=== PATIENT | female | born 1995 | race American Indian/Alaskan Native ===

== ENCOUNTER 2019-09-27 04:47 | Inpatient (IN) | payer MEDICAID, OTHER ==
[2019-09-27] MEDS ORDERED: Carboprost Tromethamine 250 MCG/1 ML Amp IM PRN ×2 (05:39→09:10)
[2019-09-27] MEDS ORDERED: Methylergonovine 0.2 MG/1 ML Amp IM PRN (05:39)
[2019-09-27] MEDS ORDERED: fentaNYL 100 MCG/2 ML SDV IVPUSH PRN (05:39)
[2019-09-27] MEDS ORDERED: Naloxone 2 MG/2 ML Syringe IVPUSH PRN (05:39)
[2019-09-27] MEDS ORDERED: Tranexamic Acid 1,000 MG in Sodium Chloride 0.9% 100 ML IV PRN ×2 (05:39→09:10)
[2019-09-27] MEDS ORDERED: ePHEDrine 50 MG/ML SDV IVPUSH PRN (05:39)
[2019-09-27] MEDS ORDERED: Misoprostol 400 MCG (4 X 100 MCG TAB) RECTAL PRN ×2 (05:39→09:10)
[2019-09-27] MEDS ORDERED: Promethazine 25 MG/ML SDV IM PRN (05:39)
[2019-09-27] MEDS ORDERED: Lactated Ringers 1,000 ML IV ONE (05:39)
[2019-09-27] MEDS ORDERED: Lidocaine 1% 30 ML SDV INJECT PRN (05:39)
[2019-09-27] MEDS ORDERED: Butorphanol 2 MG/ML SDV IVPUSH PRN (05:39)
[2019-09-27] MEDS ORDERED: Ondansetron 4 MG/2 ML SDV IVPUSH PRN (05:39)
[2019-09-27] MEDS ORDERED: Penicillin G Potassium 5 MILLUNITS in Sodium Chloride 0.9% 100 ML IV ONE (05:39)
[2019-09-27] MEDS ORDERED: Lactated Ringers 500 ML IV SCH (05:45)
[2019-09-27] MEDS ORDERED: hydrOXYzine HCl 25 MG Tab PO PRN (05:46)
[2019-09-27] MEDS: Lactated Ringers 1,000 ML IV SCH ×4 (06:34→20:19)
[2019-09-27] MEDS: Oxytocin/Normal Saline 30 UNIT/500 ML BAG IV SCH ×2 (08:34→23:12)
[2019-09-27] MEDS ORDERED: Sodium Chloride 0.9% 10 ML Syringe FLUSH PRN (09:10)
[2019-09-27] MEDS ORDERED: Benzocaine/Menthol 20%-0.5% Spray 56 GM Canister TOP PRN (09:10)
[2019-09-27] MEDS ORDERED: Acetaminophen 325 MG Tab PO PRN (09:10)
[2019-09-27] MEDS ORDERED: Simethicone 80 MG Tab.Chew PO PRN (09:10)
[2019-09-27] MEDS ORDERED: Oxytocin 10 Units/1 ML SDV IM PRN (09:10)
[2019-09-27] MEDS ORDERED: Zolpidem 5 MG Tab PO PRN (09:10)
[2019-09-27] MEDS ORDERED: Measles, Mumps & Rubella Vaccine 0.5 ML SDV SUBCUT ONE (09:10)
--- NOTE | 2019-09-27 09:59 | HP ---
CHIEF COMPLAINT: "I think I'm in labor. My water broke." HISTORY OF PRESENT ILLNESS: Ms. Anand is a 23-year-old 1, para 0 female who reports to [facility] in [place] [facility] because of leakage of fluid and contractions. Last menstrual period 12/18/2018. EDC 09/24/2019. EGA 40-3/7 weeks' gestation, which is consistent with her last menstrual period and 2nd trimester ultrasound. She denies any nausea, vomiting, or diarrhea. No fever or chills. No hematochezia, hematemesis, hematuria. No dysuria, frequency, or urgency with urination. No leg pain, leg edema, or severe back or abdominal pain. She has no vaginal bleeding. She states at approximately 3:30 this morning, her water broke after having some contractions. She has not had any issues in the . She has done quite well. She has no history of asthma, diabetes, seizure disorder, gastrointestinal disease, hypertension, heart disease, cancer, thyroid disease, thromboembolic disease, psychiatric illnesses, blood transfusions, or breast lesions. FAMILY HISTORY: Positive for breast cancer in her mother who is and her father has history of throat cancer, but no hypertension, heart disease, seizure disorder, thyroid disorder, kidney disease, or lung problems. SOCIAL HISTORY: She denies any alcohol use or tobacco use. She has used marijuana. Had a positive urine cannabis screen in February, and she states she did use the last time 2 weeks ago. Her significant other is Mikey Rosalinda, who is involved. MEDICATION: vitamins. ALLERGIES: No known drug allergies. PAST SURGICAL HISTORY: None. OBSTETRICAL HISTORY: Primigravida. GYNECOLOGICAL HISTORY: No history of STIs or abnormal Pap smears. REVIEW OF SYSTEMS: All pertinent positive and negative review of systems per HPI. All other systems reviewed were negative. A 10-point review of systems discussed with the patient. She has no other issues. OBJECTIVE: General: Well-developed, well-nourished female in no acute distress. Vital Signs: Stable. Afebrile. Blood pressure 111/52, pulse is 74, respirations 18. HEENT: Unremarkable. Neck: Supple without adenopathy. No thyromegaly. Lungs: Clear to auscultation. No wheezing, rhonchi, or rales noted. Cardiovascular: Regular rate and rhythm without murmurs. Back: No CVA tenderness. Abdomen: Gravid, nontender. Fundal height 39 cm. Protuberant. : Cervix is 2 cm dilated, 80% effaced, -2 vertex with copious amount of watery fluid discharge noted. Extremities: No edema, erythema, or tenderness noted. LABORATORY DATA: Blood type is O positive. Antibody screen negative. Rapid COVID-19 test negative. Rubella nonimmune. RPR nonreactive. Hepatitis C negative. Hepatitis B surface antigen negative. Group B strep vaginal culture positive. ASSESSMENT: 1. 40-3/7-week intrauterine . 2. Early labor. 3. Spontaneous rupture of membranes. 4. Positive group B streptococcus vaginal culture. 5. Positive marijuana use in . 6. Anemia during . 7. Rubella nonimmune. PLAN: 1. Admit to Labor and Delivery. 2. Expect vaginal delivery. 3. We will watch closely throughout her labor process. 4. We will start Pitocin augmentation if needed. 5. All questions answered. 6. The patient offered IV pain medications and intrathecal as needed. [facility] /[id number]
[2019-09-27] MEDS: Penicillin G Potassium 3 MILLUNITS in Sodium Chloride 0.9% 100 ML IV SCH ×4 (11:18→23:13)
[2019-09-27] MEDS ORDERED: Sodium Bicarbonate 4.2% 2.5 MEQ/5 ML SDV ONE ×2 (13:39→17:48)
[2019-09-27] MEDS ORDERED: fentaNYL 100 MCG/2 ML SDV ITHECAL ONE (13:39)
[2019-09-27] MEDS ORDERED: Sodium Chloride 0.9% 10 ML Syringe ONE (13:39)
[2019-09-27] MEDS ORDERED: EPINEPHrine 1 MG/1 ML Amp ONE ×2 (13:39→17:47)
[2019-09-27] MEDS ORDERED: fentaNYL 100 MCG/2 ML SDV ONE (17:47)
--- NOTE | 2019-09-27 18:27 | PCM.SN.2 ---
- Free Text/Narrative Note: Intrathecal. Sitting position, sterile prep and drape. 1% lidocaine w bicarb to L3 L4 interspace x2 and L2 L3 x 1. introducer and 24 ga pencan x 2 to L3 L4 interspace x 2. Introducer and 24 ga Pencan to L2 L3 interspace x 1. Pos CSF, neg heme neg parasthesia. 0.1 ml pf 1:1000 epi, 20 mcg pf sufenta, 30 mcg pf fentanyl 0.4 ml pf ns and 6 mg of 0.75% pf bupivacaine injected after CSF aspiration. Pt to L lateral position. Procedure time 1750 to 1830.
--- NOTE | 2019-09-27 19:32 | PCM.PNLD ---
Labor Progress Note - VS & Meds Vital Signs: Last Vital Signs Temp 98.1 F 09/27/19 16:13 Pulse 71 09/27/19 18:47 Resp 16 09/27/19 16:13 BP 143/55 H 09/27/19 18:47 Pulse Ox Active Medications: Current Medications Acetaminophen (Tylenol) 650 mg PO Q4H PRN PRN Reason: Pain (Mild 1-3) and fever Acetaminophen (Tylenol) 650 mg PO Q6H PRN PRN Reason: mild pain or fever Benzocaine/Menthol (Dermoplast Pain Relief [place]) 0 gm TOP Q4H PRN PRN Reason: Perineal comfort measures Butorphanol Tartrate (Stadol) 1 mg IVPUSH Q3H PRN PRN Reason: Pain Last Admin: 09/27/19 10:40 Dose: 1 mg Carboprost Tromethamine (Hemabate Ds) 250 mcg IM ASDIRECTED PRN PRN Reason: HEMORRHAGE Carboprost Tromethamine (Hemabate Ds) 250 mcg IM ASDIRECTED PRN PRN Reason: Excessive vaginal bleeding Docusate Sodium (Colace) 100 mg PO BID PRN PRN Reason: Constipation Ephedrine Sulfate (Ephedrine Sulfate) 5 mg IVPUSH Q5M PRN PRN Reason: See Label Comments Fentanyl (Sublimaze) 50 mcg IVPUSH Q1H PRN PRN Reason: Pain Last Admin: 09/27/19 13:20 Dose: 50 mcg Ferrous Sulfate (Ferrous Sulfate) 325 mg PO WITHBREAKFAST DEVIN Hydroxyzine HCl (Atarax) 50 mg PO ONETIME PRN PRN Reason: Pain Lactated Ringer's (Ringers, Lactated) 1,000 mls @ 125 mls/hr IV ASDIRECTED DEVIN Last Admin: 09/27/19 18:35 Dose: 125 mls/hr Lactated Ringer's (Ringers, Lactated) 500 mls @ 999 mls/hr IV .BOLUS DEVIN Oxytocin/Sodium Chloride (Pitocin In Ns 30 Unit/500 Ml) 30 unit in 500 mls @ 2 mls/hr IV TITRATE DEVIN; Protocol Last Titration: 09/27/19 16:15 Dose: 10 munits/min, 10 mls/hr Tranexamic Acid 1,000 mg/ (Sodium Chloride) 110 mls @ 660 mls/hr IV ONETIME PRN PRN Reason: Bleeding Tranexamic Acid 1,000 mg/ (Sodium Chloride) 110 mls @ 660 mls/hr IV ONETIME PRN PRN Reason: Bleeding Penicillin G Potassium 3 (millunits/ Sodium Chloride) 100 mls @ 200 mls/hr IV Q4H [facility] Last Admin: 09/27/19 19:14 Dose: 200 mls/hr Ibuprofen (Motrin) 800 mg PO Q8H PRN PRN Reason: Mild Pain or Fever Lidocaine HCl (Xylocaine-Mpf 1%) 30 ml INJECT ASDIRECTED PRN PRN Reason: Perineal Repair Methylergonovine Maleate (Methergine) 0.2 mg IM ASDIRECTED PRN PRN Reason: Hemorrhage Misoprostol (Cytotec) 800 mcg RECTAL ASDIRECTED PRN PRN Reason: Hemorrhage Misoprostol (Cytotec) 800 mcg RECTAL ONETIME PRN PRN Reason: Hemorrhage Naloxone HCl (Narcan) 0.1 mg IVPUSH SEECOMMENT PRN PRN Reason: Respiratory Depression Ondansetron HCl (Zofran) 4 mg IVPUSH Q4H PRN PRN Reason: Nausea/Vomiting Last Admin: 09/27/19 17:46 Dose: 4 mg Oxytocin (Pitocin) 10 unit IM ONETIME PRN PRN Reason: Bleeding Prenat Multivit/[place]/Iron/Folic Ac ( Plus Iron) 1 each PO DAILY [facility] Promethazine HCl (Phenergan) 12.5 mg IM Q6H PRN PRN Reason: Nausea/Vomiting Last Admin: 09/27/19 19:16 Dose: 12.5 mg Simethicone (Simethicone) 80 mg PO Q4H PRN PRN Reason: Gas Sodium Chloride (Saline Flush) 10 ml FLUSH ASDIRECTED PRN PRN Reason: Keep Vein Open Witch Erin (Medi-Pads) 1 each TOP Q4HR PRN PRN Reason: Perineal Comfort Measure Zolpidem Tartrate (Ambien) 5 mg PO BEDTIME PRN PRN Reason: Insomnia Discontinued Medications Epinephrine HCl (Adrenalin) Confirm Administered Dose 1 mg .ROUTE .STK-MED ONE Stop: 09/27/19 17:48 Fentanyl (Sublimaze) Confirm Administered Dose 100 mcg .ROUTE .STK-MED ONE Stop: 09/27/19 17:48 Lactated Ringer's (Ringers, Lactated) 1,000 mls @ 999 mls/hr IV BOLUS ONE Stop: 09/27/19 06:39 Last Admin: 09/27/19 17:48 Dose: 999 mls/hr Penicillin G Potassium 5 (millunits/ Sodium Chloride) 100 mls @ 200 mls/hr IV ONETIME ONE Stop: 09/27/19 06:08 Last Admin: 09/27/19 06:34 Dose: 200 mls/hr Measles/Mumps/Rubella Vaccine Live (M-M-R Ii Vaccine) 0.5 ml SUBCUT .ONCE ONE Stop: 09/27/19 09:11 Sodium Bicarbonate (Sodium Bicarbonate 4.2%) Confirm Administered Dose 2.5 meq .ROUTE .STK-MED ONE Stop: 09/27/19 17:49 Sufentanil Citrate (Sufenta) Confirm Administered Dose 50 mcg .ROUTE .STK-MED ONE Stop: 09/27/19 17:49 - Uterine Contractions Uterine Monitoring Mode: External Feather Sound Contraction Frequency (min): 1.5-4 Contraction Duration (sec): 60-70 Contraction Intensity: Moderate Uterine Resting Tone: Soft - Monitoring Heart Rate (FHR) Baseline: 140 Heart Rate (FHR) Variability: Moderate (6-25 bmp) Accelerations: Present, 15x15 Decelerations: Early Strip Review: Category I - Vaginal Exam Dilation (cm): 6-7 Effacement (Percent): 100 Station: -1 Cervical Position: Midposition Sterile Vaginal Exam Performed By: Matt Delarosa Vaginal Exam Comment: Pitocin at 10 mu/min Intrathecal in place patient very comfortable
--- NOTE | 2019-09-27 22:43 | PCM.OPNOTE ---
- General Post-Op/Procedure Note Date of Surgery/Procedure: 09/27/19 () Operative Procedure(s): Normal spontaneous vaginal delivery Anesthesia Technique: Local (Intrathecal and 1% Lidocaine on the perineum), Regional Block Primary Surgeon: Matt Delarosa Anesthesia Provider: Michael Walden (Intrathecal placenment) Pathology: None EBL in mLs: 300 Complications: None Condition: Good Free Text/Narrative:: Intake & Output 09/27/19 09/27/19 09/27/19 06:59 14:59 22:59 Intake Total 2200 Balance 2200 ,OA, Viable male over intact perineum Cord 3 vessel tightly around the neck X 1 Placenta delivered by simple expression intact Labia, vagina and cervix inspected and intact. 2nd degree midline perineal laceration repaired with 2-0 vicryl suture without difficulty. 7 lb male , 19 1/2 inches long, with 's of 8 and 9. 300 mL blood loss.
[2019-09-27] MEDS: Acetaminophen 325 MG Tab PO PRN (23:02)
[2019-09-28] MEDS ORDERED: Ferrous Sulfate 325 MG Tab PO SCH (08:00)
[2019-09-28] MEDS: Prenatal Multivitamin with Calcium/Folic Acid/Iron Tab PO SCH (08:20)
[2019-09-28] MEDS: Acetaminophen 325 MG Tab PO PRN ×2 (08:20→21:19)
--- NOTE | 2019-09-28 11:41 | PCM.PNPP ---
- General Info Date of Service: 09/28/19 (PPD #1 S/P ) Functional Status: Reports: Pain Controlled, Tolerating Diet, Ambulating, Urinating - Review of Systems General: Reports: No Symptoms HEENT: Reports: No Symptoms Pulmonary: Reports: No Symptoms Cardiovascular: Reports: No Symptoms Gastrointestinal: Reports: No Symptoms Genitourinary: Reports: No Symptoms Musculoskeletal: Reports: No Symptoms Skin: Reports: No Symptoms Neurological: Reports: No Symptoms Psychiatric: Reports: No Symptoms - General Info Date of Service: 09/28/19 (PPD # 1 S/P ) - Patient Data Vital Signs - Most Recent: Last Vital Signs Temp 98.1 F 09/28/19 08:00 Pulse 98 09/28/19 08:00 Resp 16 09/28/19 08:00 BP 122/55 L 09/28/19 08:00 Pulse Ox 98 09/28/19 08:00 Weight - Most Recent: 263 lb I&O - Last 24 Hours: Intake & Output 09/27/19 09/28/19 09/28/19 22:59 06:59 14:59 Intake Total 3900 900 Balance 3900 900 Lab Results - Last 24 Hours: Laboratory Results - last 24 hr 09/28/19 Range/Units 05:45 WBC 14.5 H (5.0-10.0) 10^3/uL RBC 3.33 L (4.2-5.4) 10^6/uL Hgb 9.9 L D (12.0-16.0) g/dL Hct 29.4 L (37.0-47.0) % MCV 88.3 (80-100) fL MCH 29.7 (27.0-34.0) pg MCHC 33.7 (33.0-35.0) g/dL Plt Count 166 (150-450) 10^3/uL Med Orders - Current: Current Medications Acetaminophen (Tylenol) 650 mg PO Q4H PRN PRN Reason: Pain (Mild 1-3) and fever Last Admin: 09/28/19 08:20 Dose: 650 mg Acetaminophen (Tylenol) 650 mg PO Q6H PRN PRN Reason: mild pain or fever Benzocaine/Menthol (Dermoplast Pain Relief [place]) 0 gm TOP Q4H PRN PRN Reason: Perineal comfort measures Last Admin: 09/27/19 23:03 Dose: 1 applic Butorphanol Tartrate (Stadol) 1 mg IVPUSH Q3H PRN PRN Reason: Pain Last Admin: 09/27/19 10:40 Dose: 1 mg Carboprost Tromethamine (Hemabate Ds) 250 mcg IM ASDIRECTED PRN PRN Reason: HEMORRHAGE Carboprost Tromethamine (Hemabate Ds) 250 mcg IM ASDIRECTED PRN PRN Reason: Excessive vaginal bleeding Docusate Sodium (Colace) 100 mg PO BID PRN PRN Reason: Constipation Ephedrine Sulfate (Ephedrine Sulfate) 5 mg IVPUSH Q5M PRN PRN Reason: See Label Comments Fentanyl (Sublimaze) 50 mcg IVPUSH Q1H PRN PRN Reason: Pain Last Admin: 09/27/19 13:20 Dose: 50 mcg Ferrous Sulfate (Ferrous Sulfate) 325 mg PO BIDMEALS DEVIN Hydroxyzine HCl (Atarax) 50 mg PO ONETIME PRN PRN Reason: Pain Lactated Ringer's (Ringers, Lactated) 1,000 mls @ 125 mls/hr IV ASDIRECTED DEVIN Last Infusion: 09/28/19 02:30 Dose: 0 mls/hr Lactated Ringer's (Ringers, Lactated) 500 mls @ 999 mls/hr IV .BOLUS DEVIN Oxytocin/Sodium Chloride (Pitocin In Ns 30 Unit/500 Ml) 30 unit in 500 mls @ 2 mls/hr IV TITRATE DEVIN; Protocol Last Titration: 09/28/19 02:30 Dose: 0 munits/min, 0 mls/hr Tranexamic Acid 1,000 mg/ (Sodium Chloride) 110 mls @ 660 mls/hr IV ONETIME PRN PRN Reason: Bleeding Tranexamic Acid 1,000 mg/ (Sodium Chloride) 110 mls @ 660 mls/hr IV ONETIME PRN PRN Reason: Bleeding Ibuprofen (Motrin) 800 mg PO Q8H PRN PRN Reason: Mild Pain or Fever Lidocaine HCl (Xylocaine-Mpf 1%) 30 ml INJECT ASDIRECTED PRN PRN Reason: Perineal Repair Last Admin: 09/27/19 23:05 Dose: 30 ml Methylergonovine Maleate (Methergine) 0.2 mg IM ASDIRECTED PRN PRN Reason: Hemorrhage Misoprostol (Cytotec) 800 mcg RECTAL ASDIRECTED PRN PRN Reason: Hemorrhage Misoprostol (Cytotec) 800 mcg RECTAL ONETIME PRN PRN Reason: Hemorrhage Naloxone HCl (Narcan) 0.1 mg IVPUSH SEECOMMENT PRN PRN Reason: Respiratory Depression Ondansetron HCl (Zofran) 4 mg IVPUSH Q4H PRN PRN Reason: Nausea/Vomiting Last Admin: 09/27/19 17:46 Dose: 4 mg Oxytocin (Pitocin) 10 unit IM ONETIME PRN PRN Reason: Bleeding Prenat Multivit/[place]/Iron/Folic Ac ( Plus Iron) 1 each PO DAILY DEVIN Last Admin: 09/28/19 08:20 Dose: 1 each Promethazine HCl (Phenergan) 12.5 mg IM Q6H PRN PRN Reason: Nausea/Vomiting Last Admin: 09/27/19 19:16 Dose: 12.5 mg Simethicone (Simethicone) 80 mg PO Q4H PRN PRN Reason: Gas Sodium Chloride (Saline Flush) 10 ml FLUSH ASDIRECTED PRN PRN Reason: Keep Vein Open Witch Erin (Medi-Pads) 1 each TOP Q4HR PRN PRN Reason: Perineal Comfort Measure Last Admin: 09/27/19 23:04 Dose: 1 applic Zolpidem Tartrate (Ambien) 5 mg PO BEDTIME PRN PRN Reason: Insomnia Discontinued Medications Epinephrine HCl (Adrenalin) Confirm Administered Dose 1 mg .ROUTE .STK-MED ONE Stop: 09/27/19 17:48 Last Admin: 09/27/19 21:25 Dose: Not Given Fentanyl (Sublimaze) Confirm Administered Dose 100 mcg .ROUTE .STK-MED ONE Stop: 09/27/19 17:48 Last Admin: 09/27/19 21:24 Dose: Not Given Ferrous Sulfate (Ferrous Sulfate) 325 mg PO WITHBREAKFAST [facility] Last Admin: 09/28/19 08:20 Dose: 325 mg Lactated Ringer's (Ringers, Lactated) 1,000 mls @ 999 mls/hr IV BOLUS ONE Stop: 09/27/19 06:39 Last Admin: 09/27/19 17:48 Dose: 999 mls/hr Penicillin G Potassium 5 (millunits/ Sodium Chloride) 100 mls @ 200 mls/hr IV ONETIME ONE Stop: 09/27/19 06:08 Last Admin: 09/27/19 06:34 Dose: 200 mls/hr Penicillin G Potassium 3 (millunits/ Sodium Chloride) 100 mls @ 200 mls/hr IV Q4H DEVIN Last Admin: 09/27/19 23:13 Dose: Not Given Measles/Mumps/Rubella Vaccine Live (M-M-R Ii Vaccine) 0.5 ml SUBCUT .ONCE ONE Stop: 09/27/19 09:11 Last Admin: 09/28/19 08:55 Dose: 0.5 ml Sodium Bicarbonate (Sodium Bicarbonate 4.2%) Confirm Administered Dose 2.5 meq .ROUTE .STK-MED ONE Stop: 09/27/19 17:49 Last Admin: 09/27/19 21:24 Dose: Not Given Sufentanil Citrate (Sufenta) Confirm Administered Dose 50 mcg .ROUTE .STK-MED ONE Stop: 09/27/19 17:49 Last Admin: 09/27/19 21:24 Dose: Not Given - Interaction Infant Disposition, : [place] in Room with Family Interaction: Holding Infant Infant Feeding: Breastfed Infant; Nursed Well, Continues to Breastfeed Support Person: Significant Other, Other (see below) - Recovery Exam Fundal Tone: Firm Fundal Level: At Umbilicus Fundal Placement: Midline Lochia Amount: Small Lochia Color: Rubra/Red Perineum Description: Intact, Minimal Bruising/Swelling Episiotomy/Laceration: Approximated Bladder Status: Voiding Urinary Elimination: Voided - Exam General: Alert, Oriented, Cooperative, No Acute Distress HEENT: Pupils Equal, Pupils Reactive, Mucous Membr. Moist/[place] Neck: Supple Lungs: Clear to Auscultation, Normal Respiratory Effort Cardiovascular: Regular Rate, Regular Rhythm GI/Abdominal Exam: Normal Bowel Sounds, Soft, Non-Tender, No Distention Extremities: Normal Inspection, Normal Range of Motion, Non-Tender, No Pedal Edema, Normal Capillary Refill Skin: Warm, Dry, Intact Wound/Incisions: Healing Well Neurological: No New Focal Deficit, Normal Gait, Normal Speech, Normal Tone Psy/Mental Status: Alert, Normal Affect, Normal Mood - Problem List Review Problem List Initiated/Reviewed/Updated: Yes - My Orders Last 24 Hours: My Active Orders 09/27/19 Dinner Regular Diet [DIET] 09/27/19 Lunch Regular Diet [DIET] 09/28/19 09:00 Vit with Ca/FA/Iron [ Plus Iron] 1 each PO DAILY 09/28/19 18:00 Ferrous Sulfate 325 mg PO BIDMEALS - Assessment Assessment:: PPD # 1 S/P Doing well. 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 - Plan Plan:: Increase ambulation FeSO4 325 mg 1 tablet BID po vitamin daily Ibuprofen/Tylenol for discomfort as needed. Discharge planning for tomorrow.
[2019-09-28] MEDS: Ibuprofen 800 MG Tab PO PRN (21:20)
[2019-09-28] MEDS: Docusate Sodium 100 MG Cap PO PRN (21:21)
[2019-09-28] MEDS: Ferrous Sulfate 325 MG Tab PO SCH (21:21)
--- NOTE | 2019-09-29 03:48 | PCM.PNPP ---
- General Info Date of Service: 09/29/19 (PPD # 2 S/P ) Functional Status: Reports: Pain Controlled, Tolerating Diet, Ambulating, Urinating - Review of Systems General: Reports: No Symptoms HEENT: Reports: No Symptoms Pulmonary: Reports: No Symptoms Cardiovascular: Reports: No Symptoms Gastrointestinal: Reports: No Symptoms Genitourinary: Reports: No Symptoms Musculoskeletal: Reports: No Symptoms Skin: Reports: No Symptoms Neurological: Reports: No Symptoms Psychiatric: Reports: No Symptoms - General Info Date of Service: 09/29/19 (PPD # 2 S/P ) - Patient Data Vital Signs - Most Recent: Last Vital Signs Temp 99.4 F 09/28/19 20:00 Pulse 94 09/28/19 20:00 Resp 18 09/28/19 20:00 BP 118/62 09/28/19 20:00 Pulse Ox 99 09/28/19 20:00 Weight - Most Recent: 263 lb I&O - Last 24 Hours: Intake & Output 09/28/19 09/28/19 09/29/19 14:59 22:59 06:59 Intake Total 1400 Balance 1400 Lab Results - Last 24 Hours: Laboratory Results - last 24 hr 09/28/19 Range/Units 05:45 WBC 14.5 H (5.0-10.0) 10^3/uL RBC 3.33 L (4.2-5.4) 10^6/uL Hgb 9.9 L D (12.0-16.0) g/dL Hct 29.4 L (37.0-47.0) % MCV 88.3 (80-100) fL MCH 29.7 (27.0-34.0) pg MCHC 33.7 (33.0-35.0) g/dL Plt Count 166 (150-450) 10^3/uL Med Orders - Current: Current Medications Acetaminophen (Tylenol) 650 mg PO Q4H PRN PRN Reason: Pain (Mild 1-3) and fever Last Admin: 09/28/19 21:19 Dose: 650 mg Acetaminophen (Tylenol) 650 mg PO Q6H PRN PRN Reason: mild pain or fever Benzocaine/Menthol (Dermoplast Pain Relief [place]) 0 gm TOP Q4H PRN PRN Reason: Perineal comfort measures Last Admin: 05/02/20 23:03 Dose: 1 applic Butorphanol Tartrate (Stadol) 1 mg IVPUSH Q3H PRN PRN Reason: Pain Last Admin: 09/27/19 10:40 Dose: 1 mg Carboprost Tromethamine (Hemabate Ds) 250 mcg IM ASDIRECTED PRN PRN Reason: HEMORRHAGE Carboprost Tromethamine (Hemabate Ds) 250 mcg IM ASDIRECTED PRN PRN Reason: Excessive vaginal bleeding Docusate Sodium (Colace) 100 mg PO BID PRN PRN Reason: Constipation Last Admin: 09/28/19 21:21 Dose: 100 mg Ephedrine Sulfate (Ephedrine Sulfate) 5 mg IVPUSH Q5M PRN PRN Reason: See Label Comments Fentanyl (Sublimaze) 50 mcg IVPUSH Q1H PRN PRN Reason: Pain Last Admin: 09/27/19 13:20 Dose: 50 mcg Ferrous Sulfate (Ferrous Sulfate) 325 mg PO BIDMEALS DEVIN Last Admin: 09/28/19 21:21 Dose: 325 mg Hydroxyzine HCl (Atarax) 50 mg PO ONETIME PRN PRN Reason: Pain Lactated Ringer's (Ringers, Lactated) 1,000 mls @ 125 mls/hr IV ASDIRECTED DEVIN Last Infusion: 09/28/19 02:30 Dose: 0 mls/hr Lactated Ringer's (Ringers, Lactated) 500 mls @ 999 mls/hr IV .BOLUS DEVIN Oxytocin/Sodium Chloride (Pitocin In Ns 30 Unit/500 Ml) 30 unit in 500 mls @ 2 mls/hr IV TITRATE DEVIN; Protocol Last Titration: 09/28/19 02:30 Dose: 0 munits/min, 0 mls/hr Tranexamic Acid 1,000 mg/ (Sodium Chloride) 110 mls @ 660 mls/hr IV ONETIME PRN PRN Reason: Bleeding Tranexamic Acid 1,000 mg/ (Sodium Chloride) 110 mls @ 660 mls/hr IV ONETIME PRN PRN Reason: Bleeding Ibuprofen (Motrin) 800 mg PO Q8H PRN PRN Reason: Mild Pain or Fever Last Admin: 09/28/19 21:20 Dose: 800 mg Lidocaine HCl (Xylocaine-Mpf 1%) 30 ml INJECT ASDIRECTED PRN PRN Reason: Perineal Repair Last Admin: 09/27/19 23:05 Dose: 30 ml Methylergonovine Maleate (Methergine) 0.2 mg IM ASDIRECTED PRN PRN Reason: Hemorrhage Misoprostol (Cytotec) 800 mcg RECTAL ASDIRECTED PRN PRN Reason: Hemorrhage Misoprostol (Cytotec) 800 mcg RECTAL ONETIME PRN PRN Reason: Hemorrhage Naloxone HCl (Narcan) 0.1 mg IVPUSH SEECOMMENT PRN PRN Reason: Respiratory Depression Ondansetron HCl (Zofran) 4 mg IVPUSH Q4H PRN PRN Reason: Nausea/Vomiting Last Admin: 09/27/19 17:46 Dose: 4 mg Oxytocin (Pitocin) 10 unit IM ONETIME PRN PRN Reason: Bleeding Prenat Multivit/[place]/Iron/Folic Ac ( Plus Iron) 1 each PO DAILY DEVIN Last Admin: 09/28/19 08:20 Dose: 1 each Promethazine HCl (Phenergan) 12.5 mg IM Q6H PRN PRN Reason: Nausea/Vomiting Last Admin: 09/27/19 19:16 Dose: 12.5 mg Simethicone (Simethicone) 80 mg PO Q4H PRN PRN Reason: Gas Sodium Chloride (Saline Flush) 10 ml FLUSH ASDIRECTED PRN PRN Reason: Keep Vein Open Witch [place] (Medi-Pads) 1 each TOP Q4HR PRN PRN Reason: Perineal Comfort Measure Last Admin: 09/27/19 23:04 Dose: 1 applic Zolpidem Tartrate (Ambien) 5 mg PO BEDTIME PRN PRN Reason: Insomnia Discontinued Medications Epinephrine HCl (Adrenalin) Confirm Administered Dose 1 mg .ROUTE .STK-MED ONE Stop: 09/27/19 17:48 Last Admin: 09/27/19 21:25 Dose: Not Given Fentanyl (Sublimaze) Confirm Administered Dose 100 mcg .ROUTE .STK-MED ONE Stop: 09/27/19 17:48 Last Admin: 09/27/19 21:24 Dose: Not Given Ferrous Sulfate (Ferrous Sulfate) 325 mg PO WITHBREAKFAST [facility] Last Admin: 09/28/19 08:20 Dose: 325 mg Lactated Ringer's (Ringers, Lactated) 1,000 mls @ 999 mls/hr IV BOLUS ONE Stop: 09/27/19 06:39 Last Admin: 09/27/19 17:48 Dose: 999 mls/hr Penicillin G Potassium 5 (millunits/ Sodium Chloride) 100 mls @ 200 mls/hr IV ONETIME ONE Stop: 09/27/19 06:08 Last Admin: 09/27/19 06:34 Dose: 200 mls/hr Penicillin G Potassium 3 (millunits/ Sodium Chloride) 100 mls @ 200 mls/hr IV Q4H DEVIN Last Admin: 09/27/19 23:13 Dose: Not Given Measles/Mumps/Rubella Vaccine Live (M-M-R Ii Vaccine) 0.5 ml SUBCUT .ONCE ONE Stop: 09/27/19 09:11 Last Admin: 09/28/19 08:55 Dose: 0.5 ml Sodium Bicarbonate (Sodium Bicarbonate 4.2%) Confirm Administered Dose 2.5 meq .ROUTE .STK-MED ONE Stop: 09/27/19 17:49 Last Admin: 09/27/19 21:24 Dose: Not Given Sufentanil Citrate (Sufenta) Confirm Administered Dose 50 mcg .ROUTE .STK-MED ONE Stop: 09/27/19 17:49 Last Admin: 09/27/19 21:24 Dose: Not Given - Infant Interaction Disposition, : in Room with Family Infant Interaction: Holding Infant Infant Feeding: Breastfed Infant; Nursed Well, Continues to Breastfeed Support Person: Significant Other, Other (see below) - Recovery Exam Fundal Tone: Firm Fundal Level: 1 Fingerbreadths Below Umbilicus Fundal Placement: Midline Lochia Amount: Small Lochia Color: Rubra/Red Perineum Description: Intact, Minimal Bruising/Swelling Episiotomy/Laceration: Approximated Bladder Status: Voiding Urinary Elimination: Voided - Exam General: Alert, Oriented, Cooperative, No Acute Distress HEENT: Pupils Equal, Pupils Reactive, Mucous Membr. Moist/[place] Neck: Supple Lungs: Clear to Auscultation, Normal Respiratory Effort Cardiovascular: Regular Rate, Regular Rhythm, No Murmurs GI/Abdominal Exam: Normal Bowel Sounds, Soft, Non-Tender Extremities: Normal Inspection, Normal Range of Motion, Non-Tender, No Pedal Edema Skin: Warm, Dry, Intact Neurological: No New Focal Deficit, Normal Gait, Normal Speech, Normal Tone Psy/Mental Status: Alert, Normal Affect, Normal Mood - My Orders Last 24 Hours: My Active Orders 09/28/19 09:00 Vit with Ca/FA/Iron [ Plus Iron] 1 each PO DAILY 09/28/19 18:00 Ferrous Sulfate 325 mg PO BIDMEALS 09/29/19 03:41 Ready for Discharge [RC] PER UNIT ROUTINE - Assessment Assessment:: PPD # 2 S/P Doing well. . - Plan Plan:: Discharge to home. Follow-up for 6 week check-up. Ibuprofen for pain as needed. Breast pump prescription
--- NOTE | 2019-09-29 04:38 | DISCH ---
INDICATION FOR ADMISSION: Ms. Anand is a 23-year-old 1, para 0 female at 40-3/7 weeks' gestation, who reported to [facility] in [facility] because of spontaneous rupture of membranes and early labor. On admission, she was noted to be 2 cm dilated, 80% effaced, and - 2 station with copious amounts of watery fluid noted. She tolerated her labor quite well. She did get to 3.5 cm, and Pitocin augmentation was started. She had no complications throughout the labor. She did get IV Stadol for pain control. Then, when she got very uncomfortable and dilated to about 6 cm, intrathecal anesthesia was accomplished. Once she got to complete, she started pushing. She then had a normal spontaneous vaginal delivery, OA, of a viable male infant over an intact perineum. The cord was 3 vessel and tightly around the neck x1. The placenta delivered by simple expression intact. The labia, vagina, and cervix were inspected and intact. She had a second-degree midline perineal laceration, which was repaired with 2-0 Vicryl suture without difficulty. She delivered a viable male weighing 7 pounds and 19-1/2 inches long with scores of 8 at 1 minute and 9 at 5 minutes. She had 300 mL blood loss. She then recovered quite nicely with no issues. The infant went to the nursery. The rest of her hospital stay, she had no fever, chills, nausea, vomiting, or diarrhea. She tolerated her diet well and ambulated quite well. She had minimal lochia. She was discharged to home on day #2. The patient did receive penicillin G IV 4 doses throughout her labor secondary to positive group B strep vaginal culture. LABORATORY AND DIAGNOSTIC STUDIES: 09/27/2019: WBC 9.8, hemoglobin 11.4, hematocrit 33.6, and platelet count 181,000. Urine drug screen was negative. SARS-CoV-2 RNA was negative. 09/28/2019: WBC 14.5, hemoglobin 9.9, hematocrit 29.4, and platelet count 166,000. DISCHARGE INSTRUCTIONS: 1. Discharge to home. 2. Follow up with Dr. Quan for a checkup. 3. Follow up in 6 weeks or sooner if problems develop. 4. No douching, tampons, or intercourse for 6 weeks. 5. Discharge instructions, including activity, followup, medications, diet, and wound care, were discussed with the patient. She understands these and is willing to comply with these. DISCHARGE MEDICATIONS: 1. Ibuprofen 800 mg 1 tablet every 6 to 8 hours p.r.n. for pain. 2. vitamins daily. 3. Iron daily. DISCHARGE DIAGNOSES: 1. A 40-3/7-week intrauterine . 2. Early labor. 3. Spontaneous rupture of membranes. 4. Positive group B Streptococcus vaginal culture. 5. Positive marijuana use earlier in the . 6. Anemia of chronic disease of . 7. Rubella nonimmune. 8. Acute anemia secondary to blood loss. 9. Normal spontaneous vaginal delivery of a viable male infant weighing 7 pounds and 19-1/2 inches long with Apgars of 8 at 1 minute and 9 at 5 minutes. 10.Tight nuchal cord x1. 11.Second-degree midline perineal laceration, repaired with 2-0 Vicryl sutures. 12.Intrathecal anesthesia. [facility] /[id number]
[2019-09-29] MEDS: Docusate Sodium 100 MG Cap PO PRN (08:55)
[2019-09-29] MEDS: Prenatal Multivitamin with Calcium/Folic Acid/Iron Tab PO SCH (08:55)
[2019-09-29] MEDS: Ferrous Sulfate 325 MG Tab PO SCH (08:55)
[2019-09-29] MEDS: Ibuprofen 800 MG Tab PO PRN (09:00)
[2019-09-29 09:16] VITALS: BP 106/69; PULSE 82
== END 2019-09-29 13:40 | disposition home or self-care (01) | DRG 806 ==
LOC: DL.OBCHECK 04:47 → UNDOADMIN 05:39 → DL.OB 05:39
PROVIDERS: ADMIT Obstetrics & Gynecology; ATTEND Obstetrics & Gynecology
PROC: 10E0XZZ Delivery of Products of Conception, External Approach (ICD-10-PCS; principal; 2019-09-27)
PROC: 0KQM0ZZ Repair Perineum Muscle, Open Approach (ICD-10-PCS; 2019-09-27)
PROC: 3E0R3BZ Introduction of Anesthetic Agent into Spinal Canal, Percutaneous Approach (ICD-10-PCS; 2019-09-27)
DX: O48.0 Post-term pregnancy (principal); D62 Acute posthemorrhagic anemia; Z37.0 Single live birth; Z3A.40 40 weeks gestation of pregnancy; O70.1 Second degree perineal laceration during delivery; O69.1XX0 Labor and delivery complicated by cord around neck, with compression, not applicable or unspecified; O99.824 Streptococcus B carrier state complicating childbirth; O99.02 Anemia complicating childbirth
CPT/HCPCS: 36415; 59409; 80305-QW; 85027; 90471; 90707; A9270-GY; J0171; J0595; J2001; J2405; J2540; J2550; J2590; J3010; J7050; J7120; U0002